=== PATIENT | male | born 1935 | race Caucasian/White ===

== ENCOUNTER 2016-12-06 09:31 | Day surgery (SDC) | payer MEDICARE ==
[2016-12-06] MEDS ORDERED: PROPOFOL 10 MG/ML VIAL IV ONE (14:00)
[2016-12-06] MEDS ORDERED: LIDOCAINE 2% MDV (20MG/ML) 20ML VIAL IV ONE (14:00)
[2016-12-06] MEDS ORDERED: MIDAZOLAM HCL 2MG/2ML VIAL IV ONE (14:00)
--- NOTE | 2016-12-11 18:29 | Operative Note ---
DATE OF SURGERY: 12/06/2016 OPERATION: COLONOSCOPY. PREOPERATIVE DIAGNOSIS: Personal history of colon polyps. POSTOPERATIVE DIAGNOSES: 1. Extremely redundant colon. 2. Sigmoid diverticulosis. PREPARATION QUALITY: Fair to good. ESTIMATED BLOOD LOSS: None. SPECIMENS: None. COMPLICATIONS: None apparent. PROCEDURE: After informed consent was obtained from the patient, he was placed in the left lateral decubitus position in the endoscopy suite, sedated and monitored by the department of anesthesia. Digital rectal exam was unremarkable. A well-lubricated [id number] colonoscope was inserted into the rectum and advanced to the ascending colon. Despite transabdominal pressure and reducing any sigmoid looping, I was unable to achieve cecal intubation. Multiple attempts were tried but despite this, I could not intubate the cecal cap. After that, the pediatric scope was removed and an adult colonoscope [id number] colonoscope was inserted into the rectum advanced to the ascending colon. Transabdominal pressure was required once again. Cecal cap was visualized. Scant amount of debris was there which was rinsed and aspirated. No obvious polyps were seen. The ascending, transverse colon, and descending colon were unremarkable. There were scattered diverticula in the sigmoid colon. No polyps were noted. The rectum was unremarkable in forward and J-turn views. The endoscope was straightened, the rectal ampulla deflated, and the endoscope was removed. RECOMMENDATIONS: I suggest the patient resume his medications and follow a high-fiber diet. He should undergo repeat colonoscopy in 5 years. As always, thank you for allowing me to participate in the healthcare of your patients. CC: Dr. Montana MCALLISTER
== END 2016-12-06 11:45 | disposition home or self-care (01) ==
LOC: HOP 09:31
PROVIDERS: ATTEND Internal Medicine Gastroenterology
DX: Z86.010 Personal history of colon polyps (principal); K63.89 Other specified diseases of intestine; K57.30 Diverticulosis of large intestine without perforation or abscess without bleeding; E11.42 Type 2 diabetes mellitus with diabetic polyneuropathy; Z79.84 Long term (current) use of oral hypoglycemic drugs; I10 Essential (primary) hypertension
CPT/HCPCS: 00810; G0121

== ENCOUNTER 2016-12-25 13:18 | Day surgery (SDC) | payer MEDICARE ==
--- NOTE | 2016-12-31 17:08 | Operative Note ---
DATE OF SURGERY: 12/25/2016. PREOPERATIVE DIAGNOSIS: Bladder cancer. POSTOPERATIVE DIAGNOSES: 1. Bladder cancer. 2. Benign prostatic hypertrophy with obstruction. OPERATION: CYSTOSCOPY. Anesthesia: Local. Indication: A 81-year-old male with a history of bladder cancer presents for first 6 month surveillance cystoscopy today. He has minimal lower urinary tract symptoms. PROCEDURE: Preop informed consent was obtained. Antibiotics were given. The patient was brought to the procedure room at the [facility], placed supine, and the genitalia prepped and draped sterilely. Lidocaine jelly was placed in the urethra. Flexible cystoscopy revealed an anterior urethra which appeared unremarkable. Prostatic urethra shows trilobar obstructive BPH. The bladder was entered, inspected systematically. No bladder tumor recurrence or abnormality was seen, and the ureteral orifices had normal appearance and positioning. The scope was then withdrawn. The procedure was terminated, and the patient tolerated the procedure well. PLAN: The patient will have repeat evaluation in 6 months. CC: DO ESVIN Chong
== END 2016-12-25 13:54 | disposition home or self-care (01) ==
LOC: HOP 13:18
PROVIDERS: ATTEND Urology
DX: Z08 Encounter for follow-up examination after completed treatment for malignant neoplasm (principal); N40.1 Benign prostatic hyperplasia with lower urinary tract symptoms

== ENCOUNTER 2017-01-19 19:09 | Emergency (ER) | payer MEDICARE ==
--- NOTE | 2017-01-19 19:49 | Emergency Department Record ---
History of Present Illness - General Stated complaint: BRUISED RT ARM Time Seen by Provider: 01/19/17 19:33 Source: Patient - History of Present Illness Initial comments: The patient state that 6 weeks ago he injured his right shoulder. He did not seek medical attention until recently with his PCP Dr. Carias, who placed him on naprosyn. Yesterday he played 18 holes of golf, states he did not have any re- injury or new pain of that shoulder. Today he noticed a bruise over his right upper arm on the front aspect. He has no pain, no change in his right shoulder injury, no swelling in his forearm, axilla, or hand. He came in because his insisted he get it checked. He has been on a baby aspirin daily for years, but denies having [place], CAD, CVA. He does take a BP pill but his BP is well controlled. He denies cp, aubree, sob, diaphoresis, and states he feels just fine. - Related Data Home Medications Medication Instructions Recorded Confirmed Last Taken Metformin HCl [Glucophage] 1,000 mg PO DAILY 12/29/14 02/05/15 Unknown Aspirin [Aspirin EC] 81 mg PO DAILY 02/05/15 02/05/15 Unknown Ergocalciferol (Vitamin D2) 50,000 unit PO WEEKLY 02/05/15 02/05/15 Unknown [Vitamin D2] Gabapentin [Neurontin] 600 mg PO TID 02/05/15 02/05/15 Unknown Melatonin 5 mg PO QHS 02/05/15 02/05/15 Unknown Multivitamin [Multi-Vitamin Daily] 1 each PO DAILY 02/05/15 02/05/15 Unknown Naproxen [Naprosyn] 500 mg PO Q12H 01/19/17 01/19/17 01/19/17 Previous Rx's Medication Instructions Recorded Albuterol Sulfate [Proair Hfa] 1 - 2 puff IH .EVERY 4-6 HOURS PRN 02/05/15 #1 inhaler Allergies Allergy/AdvReac Type Severity Reaction Status Date / Time No Known Drug Allergies Allergy Verified 12/29/14 08:20 Review of Systems Reviewed: No additional complaints except as noted below Constitutional: Reports: As per HPI. Denies: Chills, Fever, Malaise, Night sweats, Weakness, Weight change Eyes: Reports: As per HPI. Denies: Eye discharge, Eye pain, Photophobia, Vision change ENT: Reports: As per HPI. Denies: Congestion, Dental pain, Ear pain, Epistaxis , Hearing loss, Throat pain Respiratory: Reports: As per HPI. Denies: Cough, Dyspnea, Hemoptysis, Stridor, Wheezes Cardiovascular: Reports: As per HPI. Denies: Arrhythmia, Chest pain, Dyspnea on exertion, Edema, Murmurs, Orthopnea, Palpitations, Paroxysmal nocturnal dyspnea, Rheumatic Fever, Syncope Endocrine: Reports: As per HPI. Denies: Fatigue, Heat or cold intolerance, Polydipsia, Polyuria Gastrointestinal: Reports: As per HPI. Denies: Abdominal pain, Constipation, Diarrhea, Hematemesis, Hematochezia, Melena, Nausea, Vomiting Genitourinary: Reports: As per HPI. Denies: Dysuria, Frequency, Hematuria, Incontinence, Retention, Testicular pain, Testicular mass, Urgency Musculoskeletal: Reports: As per HPI. Denies: Arthralgia, Back pain, Gout, Joint swelling, Myalgia, Neck pain Skin: Reports: As per HPI. Denies: Bruising, Change in color, Change in hair/ nails, Lesions, Pruritus, Rash Neurological: Reports: As per HPI. Denies: Abnormal gait, Confusion, Headache, Numbness, Paresthesias, Seizure, Tingling, Tremors, Vertigo, Weakness Psychiatric: Reports: As per HPI. Denies: Anxiety, Auditory hallucinations, Depression, Homicidal thoughts, Suicidal thoughts, Visual hallucinations Hematological/Lymphatic: Reports: As per HPI. Denies: Anemia, Blood Clots, Easy bleeding, Easy bruising, Swollen glands Past Medical History - SOCIAL HISTORY Smoking Status: Never smoker Alcohol Use Comment: wine - RESPIRATORY Hx Respiratory Disorders: Yes Hx Pneumonia: Yes (last year) Hx Sleep Apnea: Yes Hx of CPAP: Yes - CARDIOVASCULAR Hx Cardio Disorders: Yes Hx Hypertension: Yes - NEURO Hx Neuro Disorders: Yes Hx Neuropathy: Yes (diabetic related-feet) - GI Hx GI Disorders: Yes Hx Hiatal Hernia: Yes (CT scan showed "small one") Hx Irritable Bowel: Yes (once in past) - Hx Genitourinary Disorders: Yes Hx Bladder Problem: Yes (microscopic blood) Hx Prostate Problems: Yes (enlarged) - ENDOCRINE Hx Endocrine Disorders: Yes Hx Diabetes: Yes (x 15 yrs) - MUSCULOSKELETAL Hx Musculoskeletal Disorders: Yes Hx Arthritis: Yes - PSYCH Hx Psych Problems: Yes Hx Depression: Yes (in past only) - HEMATOLOGY/ONCOLOGY Hx Cancer: Yes (lower lip CA, and face & ear) Family Medical History Hx Alcohol Use: Brother/Sister *Alcohol Comment: 1/2 brother Hx Cancer: Mother, Brother/Sister *Cancer Comment: brothers x 2 Hx Diabetes: Mother, Brother/Sister Hx Stroke: Brother/Sister *Stroke Comment: sister ,brother Physical Exam - General General Appearance: Alert, Oriented x3, Cooperative, No acute distress - Head Head exam: Normal inspection - Eye Eye exam: Normal appearance, PERRL Pupils: Normal accommodation - ENT ENT exam: Normal exam, Mucous membranes moist, Normal external ear exam, Normal orophraynx, TM's normal bilaterally Ear exam: Normal external inspection. negative: External canal tenderness Nasal Exam: Normal inspection. negative: Discharge, Sinus tenderness Mouth exam: Normal external inspection, Tongue normal Teeth exam: Normal inspection. negative: Dental caries Throat exam: Normal inspection. negative: Tonsillar erythema, Tonsillar exudate - Neck Neck exam: Normal inspection, Full ROM. negative: Tenderness - Respiratory Respiratory exam: Normal lung sounds bilaterally. negative: Respiratory distress - Cardiovascular Cardiovascular Exam: Regular rate, Normal rhythm, Normal heart sounds - GI/Abdominal GI/Abdominal exam: Soft, Normal bowel sounds. negative: Tenderness - Rectal Rectal exam: Deferred - exam: Deferred - Extremities Extremities exam: Normal inspection, Full ROM, Normal capillary refill. negative: Tenderness Image of Full Body: 1 - ecchymosis to anterior right upper arm, noncircumferential. No distal edema. Strong pulses distally. Bicep tendon intact and all ROM and strength fully intact with no pain during exam. - Back Back exam: Reports: Normal inspection, Full ROM. Denies: Muscle spasm, Rash noted, Tenderness - Neurological Neurological exam: Alert, Normal gait, Oriented X3, Reflexes normal - Psychiatric Psychiatric exam: Normal affect, Normal mood - Skin Skin exam: Dry, Intact, Normal color, Warm Course Vital Signs 01/19/17 19:22 Temperature 98.1 F Pulse Rate [ 72 Pulse Ox Probe] Respiratory 18 Rate Blood Pressure 148/65 [Left Arm] Pulse Ox 96 - Reevaluation(s) Reevaluation #1: Patient aware he may develop a blood clot in this arm due to the hematoma. Currently there is no swelling beyond the bruised area, and he is to return if his arm swells distally to check for a blood clot. 01/19/17 19:52 Reevaluation #2: Spoke with Amanda pruitt for Dr. Carias who is out of town. She states he will be in his office on Saturday and have patient recheck on Saturday with Dr. Carias and to old his aspirin until further instructed. 01/19/17 19:53 Medical Decision Making - Management Options MDM Management: No Additional Work-up Planned Disposition Disposition: Discharge Clinical Impression: Hematoma of arm Qualifiers: Encounter type: initial encounter Laterality: right Qualified Code(s): S40.021A - Contusion of right upper arm, initial encounter Disposition: Home, Self-Care Condition: (1) Good Instructions: Hematoma (ED) Additional Instructions: Ice to right arm first 48 hours. Hold your baby aspirin and your naprosyn until rechecked Saturday with Dr. Carias. Decrease use of right arm. Continue other medications as directed. Quality - Quality Measures Quality Measures: N/A - Blood Pressure Screening Blood Pressure Classification: Hypertensive Reading Systolic Measurement: 148 Diastolic Measurement: 65 Screening for High Blood Pressure: Pre or Hypertensive BP, No F/U Documented [ [id number]]
== END 2017-01-19 20:15 | disposition home or self-care (01) ==
LOC: ER 19:09
DX: S40.021A Contusion of right upper arm, initial encounter (principal); X58.XXXA Exposure to other specified factors, initial encounter; I10 Essential (primary) hypertension
CPT/HCPCS: 99282